=== PATIENT | male | born 1945 | race African-American/Black ===

== ENCOUNTER 2018-10-27 09:47 | Emergency (ER) | payer OTHER ==
[~2018-10-27] VITALS: Ht 195.6 cm; Wt 126.0 kg
[2018-10-27 09:55] VITALS: BP 155/94
[2018-10-27] MEDS ORDERED: IBUP-2271 PO (09:57)
[2018-10-27] MEDS ORDERED: METH500T PO (09:57)
== END 2018-10-27 11:20 | disposition home or self-care (01) ==
LOC: ER 09:47
DX: S46.911A Strain of unspecified muscle, fascia and tendon at shoulder and upper arm level, right arm, initial encounter (principal); S39.012A Strain of muscle, fascia and tendon of lower back, initial encounter; G89.29 Other chronic pain; V43.52XA Car driver injured in collision with other type car in traffic accident, initial encounter; Y93.89 Activity, other specified; Y92.488 Other paved roadways as the place of occurrence of the external cause
CPT/HCPCS: 99283